=== PATIENT | male | born 1985 | race Caucasian/White ===

== ENCOUNTER 2018-12-25 17:46 | Emergency (ER) | payer SELFPAY ==
[2018-12-25 19:52] VITALS: BP 157/86
== END 2018-12-25 20:15 | disposition left against medical advice (07) ==
LOC: ED 17:46
DX: R10.9 Unspecified abdominal pain (principal); Z53.21 Procedure and treatment not carried out due to patient leaving prior to being seen by health care provider

== ENCOUNTER 2019-04-02 19:20 | Emergency (ER) | payer OTHER ==
--- OUTSIDE RECORDS SUMMARY | 2019-04-02 19:39 | XMS REPORT | Continuity of Care Document ---
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 ETOH Use Occasionally consumes alcohol Tobacco Use Start: Unknown Patient is a current smoker, smokes chew every day Recreational Drug Use Denies Drug Use Smoking Status Reviewed: 03/29/19 Patient is a current smoker, smokes chew every day Allergies, Adverse Reactions, Alerts Active Allergies Reaction Severity Comments Date Amoxicillin 03/15/2019 Medications Active Medications SIG Qnty Indications Ordering Provider Date Oxycodone HCL si/2 to 1 by 90tabs Shashi Mayer DO, 03/29/2019 10mg mouth every 6 to MPH Tablets 8 hours as directed chronic pain patient Neurontin si by mouth 45caps Shashi Mayer DO, 03/15/2019 300mg three times a day MPH Capsules as directed chronic pain patient Aleve Unknown 220mg Capsules History Medications Oxycodone HCL si by mouth 24tabs Shashi Mayer DO, 03/15/2019 - 5mg every 8 hours as MPH 03/29/2019 Tablets directed chronic pain patient Vital Signs Date Vital Result Comment 03/29/2019 10:10am BP Systolic 128 mmHg BP Diastolic 76 mmHg Heart Rate 78 /min Respiratory Rate 20 /min Height 73 inches 6'1" Weight 262.00 lb Pain Level 6 Pain at this time. Pain Level With Medicine 5 on average with meds Pain Level Without Medicine 9 10/10 without meds BMI (Body Mass Index) 34.6 kg/m2 03/15/2019 1:59pm BP Systolic 130 mmHg BP Diastolic 82 mmHg Heart Rate 82 /min Respiratory Rate 20 /min Height 73 inches 6'1" Weight 262.00 lb Pain Level 6 Pain at this time. Pain Level Without Medicine 9 without meds BMI (Body Mass Index) 34.6 kg/m2 Procedures Date Code Description Status 03/15/2019 62229 Brief Emotional/Behav Assessment W/ Scoring Doc Per Completed Standard Inst Encounters Type Date Location Provider Dx Diagnosis Office Visit 03/15/2019 Main Office as Shashi Mayer G89.28 Other chronic 1:45p Of 12/11/13 [facility] postprocedural pain R10.32 Left lower quadrant pain Z13.31 Encounter for screening for depression Z79.891 skilled nursing (current) use of opiate analgesic Z71.89 Other specified counseling Z71.3 Dietary counseling and surveillance Plan of Treatment Future Appointment(s):04/27/2019 10:00 am - Shashi Mayer DO MPH at Main Office as Of 12/11/1404 - Shashi Mayer DO, MPHG89.28 Other chronic postprocedural painComments:Chronic. Symptoms and complaints discussed and reviewed today. No significant changes in physical findings. Continue current medical pain management.R10.32 Left lower quadrant painZ79.891 skilled nursing ( current) use of opiate analgesicNew Labs:Urine Drug Screen, Ordered: Comments:Urine drug screen sample taken. Rapid Point of Care Cup was reviewed in office with patient. Will send out UDT Rapid to Quantitative lab for confirmation testing. Urine Drug Testing (UDT) was done today to monitor opiate use and to monitor possible use of illicit substances. I will discuss the results at the next appointment from the Quantitative lab.The following tests were ordered:6 AM, AMPH, HELGA, COLEEN, BUP, CARIS, COCM, COT, ETG, FENT, MCSHSG, OPI, OXY, PCP, TAPEN, XTSY, ZOLP. A urine drug test (UDT) was ordered for this patient and collected on site today. Creatinine has been ordered as well for specimen validity, not for kidney function. Preliminary UDT results are not final and should not be used to determine patient care or plan of treatment. Initially a qualitative immunoassay screen will be done. Any inconsistent or positive findings will be further tested with a more comprehensive quantitative confirmation LCMS study. It is part of the treatment process of prescribing controlled substances and is considered standard of care.AllNew Medication:Oxycodone HCL 10 mg - si/2 to 1 by mouth every 6 to 8 hours as directed chronic pain patientComments:All above symptoms and complaints discussed as well as diagnoses reviewed.Continue trial of opioid pain management - note changes below; injection therapy, osteopathic manipulation (OMT), PT / modalities, and consults as needed to manage chronic pain.Side effects discussed; anticipatory guidance given. Patient clearly understands and agrees with all medical treatments and suggestions. All medicines prescribed are adequate and appropriate for this patient's complaint of pain, medical history, physical, and personal goals.Goals of Treatment are to provide adequate and appropriate multidisciplinary medical pain management to increase/ maintain patient's quality of life and functionality while maintaining satisfactory side effect profile and minimizing editorial specialist end-organ damage. Activity as toleratedContinue with PCP
--- OUTSIDE RECORDS SUMMARY | 2019-04-02 19:39 | XMS REPORT | Continuity of Care Document ---
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 Primary Care Physician Unavailable Payers Date Identification Numbers Payment Provider Subscriber Policy Number: [id number] [facility] Juan Nunez II PayID: [id number] [employer] [address] [place] [address] Family History Date Family Member(s) Observation Comments [...] Use Denies Drug Use Smoking Status Reviewed: 03/15/19 Patient is a current smoker, smokes chew every day Allergies, Adverse Reactions, Alerts Active Allergies Reaction Severity Comments Date Amoxicillin 03/15/2019 Medications Active Medications SIG Qnty Indications Ordering Provider Date Oxycodone HCL si by mouth 24tabs Shashi Mayer DO, 03/15/2019 5mg every 8 hours as MPH Tablets directed chronic pain patient Neurontin si by mouth 45caps Shashi Mayer DO, 03/15/2019 300mg three times a day MPH Capsules as directed chronic pain patient Aleve Unknown 220mg Capsules Vital Signs Date Vital Result Comment 03/15/2019 1:59pm BP Systolic 130 mmHg BP Diastolic 82 mmHg Heart Rate 82 /min Respiratory Rate 20 /min Height 73 inches 6'1" Weight 262.00 lb Pain Level 6 Pain at this time. Pain Level Without Medicine 9 without meds BMI (Body Mass Index) 34.6 kg/m2 Plan of Treatment Future Appointment(s):03/29/2019 9:45 am - Shashi Mayer DO, MPH at Main Office as Of 12/11/1404 - Shashi Mayer DO, MPHG89.28 Other chronic postprocedural painComments:Chronic intractable pain. Symptoms and complaints discussed and reviewed today. Begin trial of adequate and appropriate Opioid pain Management - New Medications listed below.R10.32 Left lower quadrant painComments:Chronic intractable pain. Symptoms and complaints discussed and reviewed today. Begin trial of adequate and appropriate Opioid pain Management - New Medications listed below.Surgical Mesh in place withcomplication from surgery.Z13.31 Encounter for screening for depressionComments:PHQ-9 Depression Screen administered today, results were negative at this time. No positive symptoms on the Patient Health Questionnaire. Will follow up or repeat Screen as necessary in the future Will follow as pertains to their pain. Patient seems to be stable today.Z79.891 lobsterman (current) use of opiate analgesicNew Labs:Urine Drug Screen, Ordered: 03/15/19Comments:Urine drug screen sample taken. Rapid Point of [...] controlled substances and is considered standard of care.Z71.89 Other specified counselingComments:New patient counseled in regards to office practice. They were educated about our answering services. What to do if they should have to visit the ER or have any adverse reactions to medications we prescribe. Patient understands that they have to fill their prescription at one pharmacy. If there is a change they must call us and let us know what new pharmacy they will be using. They understand and agree that they must present within 24 hours of a phone call for a random urine screen and a pill count. Patient understands that if the medication needs a prior authorization that it can take up to 72 hours to complete.Z71.3 Dietary counseling and surveillanceComments:Regular, small, nutritious meals higher in protein encouraged spaced evenly throughout the day. Count calories. Keep a food log. Hydrate.AllNew Medication:Oxycodone HCL 5 mg - si by mouth every 8 hours as directed chronic pain patientNeurontin 300 mg - si by mouth three times a day as directed chronic pain patientComments: Chronic intractable pain - Begin trial of adequate and appropriate Opioid Pain Management - New Medications listed below; injection therapy, osteopathic manipulation, PT / modalities, and consults as needed to manage chronic pain.Non - opioid pain management discussed and options provided.Side effectsdiscussed; anticipatory guidance given. Patient clearly understand and agree with all medical treatments and suggestions. All medicines prescribed are adequate and appropriate for this patient's complaint of pain, medical history, physical, and personal goals.Goals of Treatment are to provide adequateand appropriate multidisciplinary medical pain management to increase/ maintain patient's quality oflife and functionality while maintaining satisfactory side effect profile and minimizing lobsterman end-organ damage. Importance of regular nutrition throughout the day discussed.Activity as toleratedContinue with PCP
[2019-04-02 20:05] VITALS: BP 132/72
--- NOTE | 2019-04-02 20:51 | UC ---
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 a lot of pressure b/l medial maxillary and eyes. + chills/ hot but did not take temp -rrof of mouth hurts. -slight cough. no wheeze. no asthma. -has been using flonase and many otc meds. bought a netti pot, mucinex and distilled water today but hasnt used it yet - History of Current Complaint Chief Complaint: UCGeneralIllness Stated Complaint: SINUS COMPLAINT Time Seen by Provider: 04/02/19 20:26 Pain Intensity: 5 - Allergies/Home Medications Allergies/Adverse Reactions: Allergies Allergy/AdvReac Type Severity Reaction Status Date / Time amoxicillin AdvReac GI Upset Verified 04/02/19 19:53 Home Medications: Home Medications Oxycodone HCl 5 mg PO Q8H PRN 04/02/19 [History Confirmed 04/02/19] PMH/Surg Hx/FS Hx/Imm Hx Previously Healthy: Yes - Surgical History Surgical History: Yes Surgery Procedure, Year, and Place: hernia x 2, appy - Family History Known Family History: Negative: Cardiac Disease, Hypertension, Diabetes, Respiratory Disease - no asthma - Social History Alcohol Use: None Substance Use Type: None Smoking Status (MU): Never Smoked Tobacco Type: Smokeless Tobacco Amount Used/How Often: one & half can daily Length of Time of Smoking/Using Tobacco: 16 yrs Have You Smoked in the Last Year: Yes - Immunization History Most Recent Influenza Vaccination: NONE Most Recent Tetanus Shot: UTD Most Recent Pneumonia Vaccination: NONE Review of Systems All Other Systems Reviewed And Are Negative: Yes Constitutional: Positive: Fever - lena, no temp taken Skin: Positive: Negative Eyes: Positive: Negative ENT: Positive: Dental Pain, Nasal Discharge, Sinus Congestion, Sinus Pain/ Tenderness. Negative: Ear Ache Respiratory: Positive: Negative, Cough - mild. Negative: Shortness Of Breath Cardiovascular: Positive: Negative Gastrointestinal: Positive: Negative Genitourinary: Positive: Negative Motor: Positive: Negative Neurovascular: Positive: Negative Musculoskeletal: Positive: Negative Neurological: Positive: Negative Psychological: Positive: Negative Is Patient Immunocompromised?: No Physical Exam Triage Information Reviewed: Yes Appearance: Well-Nourished, Ill-Appearing - mild. very pleasant Vital Signs: Initial Vital Signs Temp 98.7 F 04/02/19 19:58 Pulse 88 04/02/19 19:58 Resp 20 04/02/19 19:58 BP 132/72 04/02/19 19:58 Pulse Ox 95 04/02/19 19:58 Vital Signs Reviewed: Yes Eye Exam: Normal ENT: Positive: Pharyngeal erythema - mild w/ + PND., Nasal congestion, Nasal drainage, Sinus tenderness - b/l maxillary medially and inferior/medial to eyes. Negative: Tonsillar swelling, Tonsillar exudate, Dental tenderness Dental Exam: Normal Neck exam: Normal Neck: Positive: Supple, Nontender, No Lymphadenopathy Respiratory Exam: Normal Respiratory: Positive: Chest non-tender, Lungs clear, Normal breath sounds, No respiratory distress, No accessory muscle use. Negative: Crackles, Rhonchi, Stridor, Wheezing Cardiovascular Exam: Normal Cardiovascular: Positive: RRR Abdomen Description: Positive: Nontender, Soft Musculoskeletal Exam: Normal Neurological Exam: Normal Psychological Exam: Normal Throat Pain/Nasal Course/Dx - Differential Dx/Diagnosis Differential Diagnosis/HQI/PQRI: Pharyngitis, Sinusitis, URI Provider Diagnosis: Sinusitis Discharge - Sign-Out/Discharge Documenting (check all that apply): Patient Departure All imaging exams completed and their final reports reviewed: No Studies - Discharge Plan Condition: Stable Disposition: HOME Prescriptions: Cefdinir cap* [Cefdinir 300 MG cap (NF)] 300 mg PO BID #20 cap Patient Education Materials: Sinusitis (ED) Referrals: Reuben Botello MD [Primary Care Provider] - 1 Week Additional Instructions: -Make sure to take a probiotic daily while on antibiotics to help prevent a potential complication of antibiotic use called c diff. Some well known brands that can be found OTC are florastor, [employer] Mom and [employer]anza. Make sure to complete the entire prescription unless advised otherwise by your health care provider. -continue with netti pot w/ distilled water followed by flonase and with mucinex. - Billing Disposition and Condition Condition: STABLE Disposition: Home
== END 2019-04-02 21:07 | disposition home or self-care (01) ==
LOC: UCCORT 19:20
DX: J32.9 Chronic sinusitis, unspecified (principal); Z88.0 Allergy status to penicillin; F17.290 Nicotine dependence, other tobacco product, uncomplicated
CPT/HCPCS: 99212; G0463